=== PATIENT | male | born 1960 | race Caucasian/White ===

== ENCOUNTER 2025-10-04 08:59 | Day surgery (SDC) | payer MEDICARE ==
[2025-10-04] MEDS ORDERED: propofoL 500 MG/50 ML 50 ML ONE (09:28)
[2025-10-04] MEDS: Lactated Ringers 1,000 ML IV SCH (09:30)
[2025-10-04] MEDS ORDERED: Lactated Ringers 1,000 ML IV SCH (10:15)
== END 2025-10-04 11:09 | disposition home or self-care (01) ==
LOC: MW.SDS 08:59
PROVIDERS: ATTEND Surgery
DX: D12.8 Benign neoplasm of rectum (principal); K57.30 Diverticulosis of large intestine without perforation or abscess without bleeding; E78.00 Pure hypercholesterolemia, unspecified; J45.909 Unspecified asthma, uncomplicated; Z79.899 Other long term (current) drug therapy
CPT/HCPCS: 45380; 45385; 88305; J2704; J7120; 00811